=== PATIENT | female | born 1970 | race Hispanic/Latino ===

== ENCOUNTER 2018-02-23 05:54 | Day surgery (SDC) | payer SELFPAY ==
[2018-02-22 16:52] LABS: Absolute Lymphocytes (CBC) 3.3 K/uL (0.7-4.9); Absolute Monocytes 0.6 K/uL (0.1-1.3); Absolute Neutrophil 6.6 K/uL (1.8-8.0); Basophils % 1.1 % (0-1.3); Hematocrit 40.4 % (36.0-45.0); Lymphocytes % 30.7 % (15.3-44.8); MCH 30.9 pg (27.0-35.0); MCV 90.1 fL (80-100); MPV 8.8 fL (7.6-11.3); Monocytes % 5.5 % (3.3-12.3); RBC Red Blood Cell Count 4.48 M/uL (3.86-4.86)
[2018-02-22 16:56] LABS: Urine Appearance CLEAR; Urine Bilirubin NEGATIVE (NEG); Urine Blood NEGATIVE (NEG); Urine Color YELLOW; Urine Glucose NEGATIVE (NEG); Urine Protein NEGATIVE (NEG); Urine Urobilinogen 0.2 mg/dL (0.2-1.0)
[2018-02-22 17:00] LABS: Urine Microscopic Reflex NO UMIC
--- NOTE | 2018-02-23 04:41 | EKG ---
Test Date: 2018-02-22 Test Time: 16:43:32 Sweeping Compound Blender: CAROLYN MEASUREMENT RESULTS: Intervals: Rate: 67 IA: 126 QRSD: 78 QT: 412 QTc: 435 [place]: P: 5 IA: 126 QRS: 26 T: 33 INTERPRETIVE STATEMENTS: Normal sinus rhythm Normal ECG No previous ECG available for comparison Electronically Signed On 02-23-18 04:41:14 CDT by Umer Rivera
[2018-02-23] MEDS ORDERED: SCOPOLAMINE HYDROBROMIDE PATCH TD ONE (06:19)
[2018-02-23] MEDS ORDERED: Ringers Lactate 1,000 ML IV ONE (06:19)
[2018-02-23] MEDS ORDERED: CEFAZOLIN/SWI 1gm 1 GM/10 ML SYR ONE (06:19)
[2018-02-23] MEDS ORDERED: PROPOFOL 200 MG/20 ML VIAL IV ONE (06:58)
[2018-02-23] MEDS ORDERED: GLYCOPYRROLATE 0.2 MG/ML SYR ONE (06:59)
[2018-02-23] MEDS ORDERED: ROCURONIUM 50 MG/5 ML VIAL IV ONE ×2 (06:59→08:20)
[2018-02-23] MEDS ORDERED: DEXAMETHASONE 10 MG/ML VIAL ONE ×2 (07:00→07:02)
[2018-02-23] MEDS ORDERED: FENTANYL CITR 250 MCG/5 ML ONE ×2 (07:01→08:12)
[2018-02-23] MEDS ORDERED: LIDOCAINE 2% MPF 5 ML VIAL ONE (07:01)
[2018-02-23] MEDS ORDERED: MIDAZOLAM HCL 2 MG/2 ML INJ ONE (07:02)
[2018-02-23] MEDS ORDERED: NEOSTIGMINE 1 MG/ML -5 ML SYRINGE ONE (07:02)
[2018-02-23] MEDS ORDERED: ONDANSETRON HCL 40 MG/20 ML VIAL ONE ×3 (07:02→10:25)
[2018-02-23] MEDS: NA CHLORIDE 0.9% 1,000 ML ONE ×2 (07:44→08:36)
[2018-02-23] MEDS ORDERED: METRONIDAZOLE 500mg IVPB 500 MG/100 ML BAG IV ONE (08:04)
[2018-02-23] MEDS: Ringers Lactate 1,000 ML IV ONE (08:25)
[2018-02-23] MEDS ORDERED: KETOROLAC 30 MG/ML INJ ONE (09:37)
[2018-02-23] MEDS: MEPERIDINE HCL 50 MG/ML AMP ONE ×3 (11:18→11:28)
[2018-02-23] MEDS ORDERED: HYDROCODONE/APAP 5/325 MG TAB ONE (13:17)
[2018-02-23] MEDS ORDERED: PROMETHAZINE 25 MG/ML VIAL ONE (15:48)
--- NOTE | 2018-02-23 18:18 | OP ---
Date of Procedure: 02/23/2018 Surgeon: Megan Mariano MD Building [employer] Salesperson Retail: Jazzmine Vasquez and Ariana Hull. Preoperative Diagnoses: Menorrhagia, leiomyomata, and right labial abscess. Postoperative Diagnoses: Menorrhagia, leiomyomata, right labial abscess, and endometriosis. Procedures Performed: Total laparoscopic hysterectomy, bilateral salpingo-oophorectomy, pelvic washi ngs, endometriosis excision at the left uterosacral ligament location, uterosacral ligament suspensio n, cystoscopy, and vaginal morcellation of the uterus. Anesthesia: General endotracheal. Specimens: Uterus, bilateral tubes and ovaries, endometriosis along with the uterine specimen with t he left uterosacral. Findings: Right labial abscess 1.5 cm deep, and this was incised and drained and packed with Nu Gauz e. Due to the above, she was given Flagyl, alongside her Ancef. Enlarged uterus, 338 g. Normal aptricia ateral ovaries and tubes. The endometriosis was seen at the left uterosacral, which was excised comp letely along with the uterine specimen. There was uterine prolapse, especially after performing the hysterectomy. This was obvious, so dista l uterosacral ligament suspension was performed, re-attaching it back to the uterine apex and to the vaginal apex. Cystoscopy was performed and no evidence of any obstruction. Both ureters were patent. Description Of Procedure: After informed consent was verified, patient was taken back to the OR, pepe delores in a supine fashion on the operating table. After general anesthesia was given, she was placed i n the dorsal lithotomy position. Ancef was given. Flagyl was given as well due to the presence of h er right labial abscess. Then, after general anesthesia was given, she was placed in a dorsal lithot zeynep position. Pelvic exam was performed. Uterus about 10 to 12 week size. Right labial abscess was obvious, and about 1.5 cm deep. Abdomen, vulva, vagina, and perineum were prepped and draped in a sterile fashion, and the right labi um was draped appropriately, so this was first addressed without touching anything else. An I and D were performed in a cruciate fashion with a 15-blade and the abscess cavity was entered and drained a nd thorough irrigation with saline was conducted with at least 100 mL of fluid. Then this was hemost atic. A part of the skin tissue was removed in order to leave the opening wide enough to perform the packing. Nu Gauze quarter inch was packed inside tightly and this was covered with two 4x4s and a T egaderm was placed and this was all draped stabled. Then gloves were changed. All the instruments w ere changed. A speculum was placed to expose the cervix anterior lip grasped with 2 Allis clamps. A large VCare introduced and fixed in place. A Escobedo was placed and this was attached through cysto t ubing to an LR bag, emptied 300. This was left on the floor to drain. A 1 cm infraumbilical incision was made with a scalpel using the open laparoscopy technique. The ent [place] fascia was incised, tagged on both sides with 0 Vicryl sutures and once the peritoneum was entere d bluntly. A finger was passed to palpate the possible potential umbilical hernia. I did not feel e vidence of a hernia. There was a small weakening at the natural location of the umbilicus and the ad hesions appeared to be lateral and left to the omental adhesions to the lateral aspect of the infraum bilical scar that she had likely from a tubal ligation. So after S retractor was placed again, the scope was introduced through the Fran. The upper abdomi nal surface was completely unremarkable. No evidence of endometriosis. On putting in a 10 port supr apubic and 5 port left lower quadrant thorough inspection of the pelvic cavity was performed and ther e was endometriosis in the left uterosacral ligament pretty close to the distal part of it. No other endometriosis was visible. The ureters were in their on distorted course. Using a 5 mm LigaSure curved tip, the anterior bladder peritoneum was opened up starting at the left broad ligament going across the bladder peritoneum, all the way to the right of the distal end to the inferior aspect of the right uterosacral and right round ligament. Then, the bladder flap was pushe d down inferiorly. I came up to the left tube. The tube was transected mesosalpinx as well. Then, the utero-ovarian ligament was taken down. Then, round ligament was taken down. Posterior broad lig ament was opened up all the way to the level of the left uterosacral ligament. The broad ligament wa s skeletonized exposing the vessels. On the opposite side, similar dissection was performed taking d own the round and utero-ovarian ligament, tube, and the posterior peritoneum on the broad ligament. Once the vessels were exposed, the bladder flap was cleared up using a monopolar to open up the loose areolar tissue entering the vesicovaginal space and the bladder was pushed down. The vessels were i solated on both sides and the medial incision was made to create an opening, taken down with bipolar basket tip. Then, with the LigaSure on both sides, first on the right then on the left. Cardinal li gaments were also taken down on both sides. Then, circumferential colpotomy was performed with the m onopolar hook blade and cervix was held with Allis clamps and pulled through the vagina. It was diff icult to pull out the uterus completely so. Then down with the mass clamps they were placed in seque ntial fashion from the cervix going up the systematically. Fibroids were removed as I morcellated ca refully without entering the uterine cavity. The entire specimen was retrieved through the vagina. Once the vaginal occlusion bulb was placed, all gloves, gown everything were changed, and went up top . Thorough irrigation and suction were performed at the vaginal cuff, there was excellent hemostasis . Both tubes and ovaries were removed with the LigaSure and retrieved through the vagina. The vaginal closure was performed at the colpotomy with the help of 2-0 barbed V-Loc suture, and the stitch was started at the right end, and in a continuous running fashion to get all the way to the le ft end of the cuff. The uterosacral ligaments were brought together on both sides with a 0 PDS stitc h, starting from the right uterosacral, posterior vaginal wall and then the left uterosacral ligament , and this was tied. There was a good culdoplasty as well as the suspension. The ureters were visualized. No evidence of electrical, mechanical, or thermal injury to them. Gas was desufflated. The trocars pulled out. The fascia was closed the umbilicus with 0 Vicryl in a fig brw-oh-rwgej fashion. Cystoscopy was performed with a 17-[place] sheath, 30-degree lens normal saline. Strong streams of ur ine from both ureteric orifices readily and the area above the trigone dome all appeared to be unrema rkable without any trauma. This completed the cystoscopy. Bladder was drained. The vagina was romero leeann up as well. All instruments were removed. Instrument, needle, and sponge counts were done and w ere correct at the end of the case. The patient tolerated the procedure well. She was extubated in the OR and taken to PACU in stable condition. She will be discharged home with her pain medications. Home health services to change her wound dressing daily. She also will be given Bactrim DS 1 p.o. b.i.d. for her labial abscess. JAGDISH Voice ID: [id number] Report ID: [id number]
== END 2018-02-23 15:45 | disposition home or self-care (01) ==
LOC: PRE 05:54
PROVIDERS: ATTEND Obstetrics & Gynecology
PROC: 0UT24ZZ Resection of Bilateral Ovaries, Percutaneous Endoscopic Approach (ICD-10-PCS; 2018-02-23)
PROC: 0UT74ZZ Resection of Bilateral Fallopian Tubes, Percutaneous Endoscopic Approach (ICD-10-PCS; 2018-02-23)
PROC: 0UB44ZZ Excision of Uterine Supporting Structure, Percutaneous Endoscopic Approach (ICD-10-PCS; 2018-02-23)
PROC: 0U9M0ZZ Drainage of Vulva, Open Approach (ICD-10-PCS; 2018-02-23)
PROC: 0USG7ZZ Reposition Vagina, Via Natural or Artificial Opening (ICD-10-PCS; 2018-02-23)
PROC: 0UT94ZZ Resection of Uterus, Percutaneous Endoscopic Approach (ICD-10-PCS; principal; 2018-02-23 07:00)
DX: N92.1 Excessive and frequent menstruation with irregular cycle (principal); D25.9 Leiomyoma of uterus, unspecified; N76.4 Abscess of vulva; N80.3 Endometriosis of pelvic peritoneum; I10 Essential (primary) hypertension; Z88.6 Allergy status to analgesic agent
CPT/HCPCS: 36415; 81003; 84703; 85025; 86850; 86900; 86901; 88108; 88305; 88307; 93005; J0690; J1100; J2175; J2250; J2405; J2550; J2704; J2710; J7030